=== PATIENT | female | born 1965 | race Caucasian/White ===

== ENCOUNTER 2016-12-09 13:38 | Emergency (ER) | payer BC ==
[2016-12-09 16:11] VITALS: BP 142/77
[2016-12-09] MEDS ORDERED: Albuterol/Ipratropium NEB.SOL* Albuterol 2.5 MG/Ipratropium 0.5 MG 3 ML INH ONE (16:22)
--- NOTE | 2016-12-09 16:22 | UC ---
Respiratory Complaint HPI - HPI Summary HPI Summary: pt here today with cough and fever for 2 days - History of Current Complaint Chief Complaint: UCRespiratory Stated Complaint: COUGH Time Seen by Provider: 12/09/16 16:13 Hx Obtained From: Patient Hx Last Menstrual Period: 12/01/16 ?: No Onset/Duration: Sudden Onset, Lasting Days - 2, Still Present Timing: Constant Severity Initially: Moderate Severity Currently: Moderate Pain Intensity: 4 Pain Scale Used: 0-10 Numeric Character: Cough: Productive Aggravating Factors: Nothing Alleviating Factors: Nothing Associated Signs And Symptoms: Positive: Fever, Chills, Pleuritic Chest Pain, URI, Nasal Congestion, Sinus Discomfort - Allergies/Home Medications Allergies/Adverse Reactions: Allergies Allergy/AdvReac Type Severity Reaction Status Date / Time Penicillins Allergy Unknown Unknown Verified 12/09/16 16:12 Reaction Details Sulfa Drugs Allergy Unknown Unknown Verified 12/09/16 16:12 Reaction Details Home Medications: Home Medications Dextromethorphan-Phenylephrine [Vicks Dayquil Cold & Flu 10-5-325 mg] 1 cap PO ONCE PRN 12/09/16 [History Confirmed 12/09/16] Ibuprofen TAB* [Motrin TAB* 800 MG] 800 mg PO Q6H 12/09/16 [History Confirmed ] Humdginiagjcp-Rujwggzvrb-Wltng [Nyquil Severe Cold/Flu 5-6.25-10-325 mg/15Ml] 1 liq PO QPM PRN 12/09/16 [History Confirmed 12/09/16] PMH/Surg Hx/FS Hx/Imm Hx Previously Healthy: No Endocrine History Of: Denies: Diabetes, Thyroid Disease Cardiovascular History Of: Reports: Cardiac Disorders - SVT Denies: Hypertension, Pacemaker/ICD Respiratory History Of: Reports: Asthma, Bronchitis Denies: COPD GI/ History Of: Denies: Ulcer - Surgical History Surgical History: Yes Surgery Procedure, Year, and Place: C-Sections, 1982 1994, [facility]; Right Carpal Tunnel, 2002, [facility]; Tubal Ligation, 2004, [place]; Uterine Ablation, 2006 , [place]; - Family History Known Family History: Positive: None Family History: denies cardiovascular issues in family lineage - Social History Occupation: Employed Full-time - social work program coordinator Lives: With Family Alcohol Use: Occasionally Substance Use Type: None Smoking Status (MU): Heavy Every Day Tobacco Smoker Type: Cigarettes Amount Used/How Often: 1 PPD Length of Time of Smoking/Using Tobacco: 31 Years Have You Smoked in the Last Year: Yes Household Exposure Type: Cigarettes Cessation Counseling: Counseled 3+Min - 10 Min - Immunization History Most Recent Influenza Vaccination: [id number] Review of Systems Constitutional: Fever, Chills, Fatigue Skin: Negative Eyes: Negative ENT: Nasal Discharge Respiratory: Cough Cardiovascular: Negative Gastrointestinal: Negative Genitourinary: Negative Motor: Negative Neurovascular: Negative Musculoskeletal: Negative Neurological: Negative Psychological: Negative All Other Systems Reviewed And Are Negative: Yes Physical Exam Triage Information Reviewed: Yes Appearance: Well-Nourished, Ill-Appearing, Pain Distress Vital Signs: Initial Vital Signs Temp 101.4 F 12/09/16 16:03 Pulse 97 12/09/16 16:03 Resp 20 12/09/16 16:03 BP 142/77 12/09/16 16:03 Pulse Ox 98 12/09/16 16:03 Vital Signs Reviewed: Yes Eye Exam: Normal Eyes: Positive: Conjunctiva Clear ENT Exam: Normal ENT: Positive: Normal ENT inspection, Hearing grossly normal, Pharynx normal, TMs normal. Negative: Nasal congestion, Nasal drainage, Tonsillar swelling, Tonsillar exudate, Trismus, Muffled/hoarse voice Neck exam: Normal Neck: Positive: Supple, Nontender, No Lymphadenopathy Respiratory Exam: Normal Respiratory: Positive: Chest non-tender, Lungs clear, Normal breath sounds, No respiratory distress, No accessory muscle use, Respiratory distress Cardiovascular Exam: Normal Cardiovascular: Positive: RRR, No Murmur, Pulses Normal, Brisk Capillary Refill Musculoskeletal Exam: Normal Musculoskeletal: Positive: Strength Intact, ROM Intact, No Edema Neurological Exam: Normal Neurological: Positive: Alert, Muscle Tone Normal Psychological Exam: Normal Psychological: Positive: Normal Response To Family Skin Exam: Normal UC Diagnostic Evaluation - Laboratory O2 Sat by Pulse Oximetry: 98 Respiratory Course/Dx - Course Course Of Treatment: Biaxin, prednisone, albuterol robitussin and codiene, smoking cesation information, increase fluids, follow with PCP re-check Prn - Differential Dx/Diagnosis Differential Diagnosis/HQI/PQRI: Bronchitis, Influenza, Laryngitis, Lower Resp Infection, Sinusitis Provider Diagnoses: Bronchitis with bronchospasm Discharge - Discharge Plan Condition: Stable Disposition: HOME Prescriptions: Albuterol HFA INHALER* [Ventolin HFA Inhaler*] 2 puff INH Q4H PRN #1 mdi PRN Reason: cough/chest tightness Clarithromycin TAB* [Biaxin TAB*] 500 mg PO BID #20 tab Spacer/Aerosol-Holding Chamber [Aerochamber Plus] 1 mis .SEE ORDER SEE INSTRUCTIONS #1 mis guaiFENesin/CODIEN 100MG-10MG* [Robitussin AC 100Mg-10Mg*] 10 ml PO Q6H PRN # 120 udc MDD 40ml PRN Reason: cough predniSONE TAB* [Deltasone TAB*] 10 mg PO DAILY #20 tab Patient Education Materials: How to Stop Smoking (ED), Cigarette Smoking and Your Health (GEN), How to Use a Metered-Dose Inhaler (ED), Acute Bronchitis (ED) , Bronchospasm (ED) Referrals: Bri Baca MD [Primary Care Provider] - If Needed
[2016-12-09] MEDS ORDERED: Acetaminophen TAB* 325 MG PO ONE (16:24)
== END 2016-12-09 17:25 | disposition home or self-care (01) ==
LOC: UCCORT 13:38
DX: J20.9 Acute bronchitis, unspecified (principal); Z88.2 Allergy status to sulfonamides; Z88.0 Allergy status to penicillin; F17.210 Nicotine dependence, cigarettes, uncomplicated; Z71.6 Tobacco abuse counseling
CPT/HCPCS: 87502; 99212; A9270-GY; G0463

== ENCOUNTER 2017-09-04 10:33 | Emergency (ER) | payer BC ==
[2017-09-04 12:04] VITALS: BP 148/66
[2017-09-04] MEDS ORDERED: Acetaminophen TAB* 325 MG PO ONE (12:05)
--- NOTE | 2017-09-04 12:51 | UC ---
FLU HPI - HPI Summary HPI Summary: Pt c/o gradual onset fever, malaise, sore throat, cough ,and bilateral ear pain. - History of Current Complaint Chief Complaint: UCRespiratory Stated Complaint: FEVER,SORE THROAT,EAR PAIN Time Seen by Provider: 09/04/17 12:05 Hx Obtained From: Patient Hx Last Menstrual Period: 08/28/17 ?: No Onset/Duration: Gradual Onset, Lasting Days, Worse Since - onset Severity Currently: Moderate Severity Initially: Mild Associated Signs & Symptoms: Positive: Fever, Myalgia, Cough, Sore Throat - Risk Factors Influenza Risk Factors: Negative - Allergy/Home Medications Allergies/Adverse Reactions: Allergies Allergy/AdvReac Type Severity Reaction Status Date / Time Penicillins Allergy Unknown Unknown Verified 12/09/16 16:12 Reaction Details Sulfa Drugs Allergy Unknown Unknown Verified 12/09/16 16:12 Reaction Details Home Medications: Home Medications Bupropion XL* [Wellbutrin XL *] 300 mg PO DAILY 09/04/17 [History Confirmed ] Varenicline 0.5 mg Tab(Nf) [Chantix 0.5 MG TAB(NF)] 0.5 mg PO DAILY 09/04/17 [ History Confirmed 09/04/17] PMH/Surg Hx/FS Hx/Imm Hx Previously Healthy: Yes - Surgical History Surgical History: Yes Surgery Procedure, Year, and Place: C-Sections, 1982 1994, [facility]; Right Carpal Tunnel, 2002, [facility]; Tubal Ligation, 2004, [place]; Uterine Ablation, 2006 , [place]; - Family History Known Family History: Positive: None Family History: denies cardiovascular issues in family lineage - Social History Occupation: Employed Full-time Lives: With Family Alcohol Use: Occasionally Substance Use Type: None Smoking Status (MU): Former Smoker Type: Cigarettes Amount Used/How Often: 1 PPD Length of Time of Smoking/Using Tobacco: 35 Years Have You Smoked in the Last Year: Yes When Did the Patient Quit Smoking/Using Tobacco: 07/15/17 Household Exposure Type: Cigarettes - Immunization History Most Recent Influenza Vaccination: 08/26/17 Review of Systems Constitutional: Fever, Chills, Fatigue Skin: Negative Eyes: Negative ENT: Sore Throat, Ear Ache Respiratory: Shortness Of Breath, Cough Cardiovascular: Negative Gastrointestinal: Negative Genitourinary: Negative Motor: Negative Neurovascular: Negative Musculoskeletal: Myalgia Neurological: Negative Psychological: Negative Is Patient Immunocompromised?: No All Other Systems Reviewed And Are Negative: Yes Physical Exam Triage Information Reviewed: Yes Appearance: Ill-Appearing Vital Signs: Initial Vital Signs Temp 101.2 F 09/04/17 11:58 Pulse 96 09/04/17 11:58 Resp 18 09/04/17 11:58 BP 148/66 09/04/17 11:58 Pulse Ox 99 09/04/17 11:58 Vital Signs Reviewed: Yes Eye Exam: Normal ENT Exam: Normal Neck exam: Normal Respiratory Exam: Other Respiratory: Positive: Crackles Cardiovascular Exam: Normal Musculoskeletal Exam: Normal Neurological Exam: Normal Psychological Exam: Normal Skin Exam: Normal Flu Course/Dx - Differential Dx/Diagnosis Differential Diagnosis/HQI/PQRI: Bronchitis, Pneumonia, Upper Respiratory Infection, Other Provider Diagnoses: Bronchitis Discharge - Discharge Plan Condition: Stable Disposition: HOME Prescriptions: Azithromycin TAB* [Zithromax TAB (Z-VICTOR MANUEL) 250 mg #6 tabs] 2 tab PO .TODAY, THEN 1 DAILY #1 victor manuel Benzonatate CAP* [Tessalon 100 MG CAP*] 100 mg PO Q8H PRN #21 cap PRN Reason: Cough predniSONE TAB* [Deltasone TAB*] 20 mg PO DAILY #4 tab Patient Education Materials: Acute Bronchitis (ED) Forms: *Work Release Referrals: Bri Baca MD [Primary Care Provider] -
== END 2017-09-04 13:00 | disposition home or self-care (01) ==
LOC: UCCORT 10:33
DX: J40 Bronchitis, not specified as acute or chronic (principal); Z88.0 Allergy status to penicillin; Z88.2 Allergy status to sulfonamides; Z87.891 Personal history of nicotine dependence
CPT/HCPCS: 87502; 87651; 99212; A9270-GY; G0463

== ENCOUNTER 2017-11-07 12:16 | Emergency (ER) | payer BC ==
--- NOTE | 2017-11-07 13:38 | UC ---
Upper Extremity HPI - HPI Summary HPI Summary: 52 year old female presents with complains of right shoulder pain with no trauma. - History of Current Complaint Stated Complaint: RIGHT SHOULDER PAIN Time Seen by Provider: 11/07/17 13:38 Hx Obtained From: Patient Hx Last Menstrual Period: 08/28/17 Onset/Duration: Sudden Onset Severity Initially: Moderate Severity Currently: Moderate Pain Scale Used: 0-10 Numeric - 5 Character: Sharp Aggravating Factor(s): Movement Alleviating Factor(s): Nothing Associated Signs And Symptoms: Positive: Negative - Allergies/Home Medications Allergies/Adverse Reactions: Allergies Allergy/AdvReac Type Severity Reaction Status Date / Time Penicillins Allergy Unknown Unknown Verified 11/07/17 14:00 Reaction Details Sulfa Drugs Allergy Unknown Unknown Verified 11/07/17 14:00 Reaction Details PMH/Surg Hx/FS Hx/Imm Hx Previously Healthy: Yes - Surgical History Surgical History: Yes Surgery Procedure, Year, and Place: C-Sections, 1982 1994, [facility]; Right Carpal Tunnel, 2002, [facility]; Tubal Ligation, 2004, [place]; Uterine Ablation, 2006 , [place]; - Family History Known Family History: Positive: None Family History: denies cardiovascular issues in family lineage - Social History Alcohol Use: Occasionally Substance Use Type: None Smoking Status (MU): Former Smoker Type: Cigarettes Amount Used/How Often: 1 PPD Length of Time of Smoking/Using Tobacco: 35 Years Have You Smoked in the Last Year: Yes When Did the Patient Quit Smoking/Using Tobacco: 07/15/17 Household Exposure Type: Cigarettes - Immunization History Most Recent Influenza Vaccination: 08/26/17 Review of Systems Constitutional: Negative Skin: Negative Eyes: Negative ENT: Negative Respiratory: Negative Cardiovascular: Negative Gastrointestinal: Negative Genitourinary: Negative Motor: Negative Neurovascular: Negative Musculoskeletal: Other: Neurological: Negative Psychological: Negative All Other Systems Reviewed And Are Negative: Yes Physical Exam Triage Information Reviewed: Yes Vital Signs Reviewed: Yes Eye Exam: Normal ENT Exam: Normal Dental Exam: Normal Neck exam: Normal Neck: Positive: 1 Respiratory Exam: Normal Cardiovascular Exam: Normal Abdominal Exam: Normal Musculoskeletal: Positive: Other: - right shoulder/neck pain Neurological Exam: Normal Psychological Exam: Normal Skin Exam: Normal Upper Extremity Course/Dx - Differential Dx/Diagnosis Provider Diagnoses: right neck/shoulder spasm/pain Discharge - Discharge Plan Condition: Stable Disposition: HOME Prescriptions: Meloxicam [Mobic] 7.5 mg PO BID #30 tab Methocarbamol TAB* [Robaxin 500 MG TAB*] 500 mg PO TID PRN #30 tab PRN Reason: Spasms - Back Patient Education Materials: Shoulder Sprain (ED) Referrals: Bri Baca MD [Primary Care Provider] - Eric Reese [Physical Therapist] -
[2017-11-07 14:05] VITALS: BP 129/57
== END 2017-11-07 14:16 | disposition home or self-care (01) ==
LOC: UCCORT 12:16
DX: M62.838 Other muscle spasm (principal); M54.2 Cervicalgia; M25.511 Pain in right shoulder; Z88.0 Allergy status to penicillin; Z88.2 Allergy status to sulfonamides; Z87.891 Personal history of nicotine dependence
CPT/HCPCS: 99212; G0463

== ENCOUNTER 2018-09-01 08:40 | Emergency (ER) | payer BC ==
--- OUTSIDE RECORDS SUMMARY | 2018-09-01 08:49 | XMS REPORT ---
:1965 External Reference #:[id number] Author Organization [facility] Address [address] [address] Phone [phone] Care Team Providers Name Role Phone Bri Baca MD Care Team Information Leasing Agent Unavailable Payers Type Date Identification Numbers Payment Provider Subscriber Commercial Effective: Policy Number: BCBS Aure Walker 2016 [id number] Group Number: CLAUDE RAJAN [address] [address] Group Name: KASSIE Mcneil [id number] PayID: [id number] Workers Compensation Onset: 2012 Policy Number: Noreen Walker [id number] [address] [place] [address] Problems Date Description Provider Status Onset: 04/18/2007 Elevated blood-pressure reading without Bri Baca MD Active diagnosis of hypertension Onset: 06/27/2006 Mixed hyperlipidemia Bri Baca MD Active Onset: 01/27/2006 Generalized anxiety disorder Bri Baca MD Active Onset: 07/22/2016 Tobacco user Bri Baca MD Active Onset: 04/27/2018 Chronic kidney disease stage 3 Bri Baca MD Active Onset: 12/15/2009 Benign essential hypertension Bri Baca MD Resolved Resolved: 02/07/2015 Family History Date Family Member(s) Problem(s) Comments General Hypertension Father Hypertension : (age 80 Years) Father due to CHF Also, had leukemia Father CAD Father Diabetes, Adult Diabetes Mellitus,II Mother Asthma Social History Type Date Description Comments Education Higest level completed, in human services and is Bachelor's Degree now in a part-time grad school for social work this fall. Marital Status Lives With Son Occupation Medicaid visitor services assistant for [employer] Cigarette Use Former Cigarette Smoker ETOH Use Rarely consumes alcohol Smoking 07/31/2018 Patient is a current smoker, 1 every 2-3 days smokes some days General Hx Text Allergies, Adverse Reactions, Alerts Date Description Reaction Status Severity Comments 11/14/2014 Penicillin active 11/14/2014 Sulfa Drugs active 12/13/2016 Clarithromycin active vomitng Medications Medication Date Status Form Strength Qnty SIG Indications Ordering Provider Gabapentin 08/10/ Active Capsules 300mg 30caps take 1 M54.9 Butt, 2018 capsule at Rene, bedtime DO Chantix 04/27/ Active Tablets 1mg 60tabs 1 by mouth F17.211 Keven Continuing 2017 twice a MD Bri Bupropion HCL 06/16/ Active Tablets ER 300mg 90tabs 1 by mouth F41.1 Keven ER (XL) 2016 24HR every day MD Bri Valacyclovir 05/02/ Active Tablets 1gm 90tabs 2 tabs by ROWDY Baca 2013 mouth MD Bri every 12 x 2 doses as needed cold sores Multi Vitamin / Active Tablets 1 by mouth Unknown 0000 every day Azithromycin 10/27/ Hx Tablets 250mg 6tabs 2 by mouth Keven 2016 - today, MD Bri 1 by 2018 mouth daily x 4 more days Bupropion HCL 05/25/ Hx Tablets ER 150mg 90tabs 1 by mouth F41.1 Keven ER (XL) 2016 - 24HR every day MD Bri 2016 Chantix 05/16/ Hx Tablets 1mg 30tabs 1 by mouth F17.211 Naman Baca 2016 - qd MD Bri 2017 Chantix 04/25/ Hx Tablets 0.5mg X 11 1tabs use as F17.210 Keven Starting Month 2016 - & 1 mg X directed MD Kirill Gregory on the 2016 package Bupropion HCL 01/20/ Hx Tablets ER 150mg 90tabs 1 by mouth F41.1 Keven ER (XL) 2016 - 24HR every MD Bri 05/25/ . 2016 Proventil HFA 12/13/ Hx Aerosol 108(90Base 1units 2 puffs R05 Keven 2016 - ) mcg/Act every 4 MD Bri 12/13/ hours as 2017 needed for cough/whee zing Prednisone 12/13/ Hx Tablets 10mg 63tabs 6 by mouth R05 Keven 2016 - daily x 3 MD Bri 01/20/ days, then 2016 decrease dose by 1 pill daily every 3 days until gone. Ventolin HFA 12/13/ Hx Aerosol 108(90Base 8gm 2 puffs R05 Keven 2016 - ) mcg/Act every 4 MD Bri 16/ hours as 2017 needed Meloxicam 05/01/ Hx Tablets 15mg 30tabs take 1 720.2 Keven 2014 - tablet MD Bri 07/25/ daily for 2014 pain for 1-2 weeks then daily if needed for pain Prednisone 05/01/ Hx Tablets 10mg 14tabs 1 by mouth 691.8 Keven 2014 - daily x 14 MD Bri 07/25/ 2014 Paroxetine HCL 11/14/ Hx Tablets 20mg 90tabs 1 by mouth F41.1 Keven 2014 - daily MD Bri 2016 Azithromycin 09/02/ Hx Tablets 250mg 6tabs 2 tabs by Keven 2013 - mouth x 1 MD Bri 11/14/ dose on 2014 the first day of treatment, then 1 tab by mouth daily x 4 days. Paroxetine HCL 02/01/ Hx Tablets 30mg 30tabs 1 by mouth 300.02 Keven 2013 - every day MD Bri 2014 Immunizations CPT Code Status Date Vaccine Reaction Lot # [id number] Given 07/31/2018 Prevnar 13 Pneumococal [id number] Conjugate Vaccine [id number] Given 08/26/2017 Afluria Imunization 06762 Given 07/27/2013 Afluria Or Fluvirin Flu Vac Intramuscular 38857 Given 07/23/2013 Hepatitis B Vac Adolescent 2 Dose Schedule 04042 Given 09/18/2011 Tdap (Adacel) Ages 7 And Above Only 94844 Given 09/07/2011 Afluria Or Fluvirin Flu Vac VIS DATE 06/01/11 Intramuscular 01188 Given 09/24/2010 Afluria Or Fluvirin Flu Vac Intramuscular 20183 Given 10/23/2009 Administration Swine Flu Vaccine [id number] 34665 Given 10/13/2009 Afluria Or Fluvirin Flu Vac Intramuscular 86980 Given 09/26/2008 Afluria Or Fluvirin Flu Vac Intramuscular 44568 Given 10/13/1995 Varicella (Chicken Pox) PER PAPER CHART Immunization 05574 Given 09/15/1995 Varicella (Chicken Pox) PER PAPER CHART. Immunization 71032 Given 01/17/1992 Mumps Immunization PER PAPER CHART. 41265 Given 01/17/1992 Measles Immunization PER PAPER CHART. (TITERS) 38608 Given 06/15/1977 Measles Immunization 04230 Given 07/21/1972 DTP Immunization PER PAPER CHART. 65585 Given 12/08/1969 Rubella Immunization PER PAPER CHART 83157 Given 12/18/1968 Mumps Immunization PER PAPER CHART 43545 Given 07/02/1968 IPV / Poliomyelitis PER PAPER CHART Immunization 98191 Given 12/31/1967 DTP Immunization PER PAPER CHART 48770 Given 07/04/1967 Measles Immunization PER PAPER CHART. 75609 Given 05/23/1967 IPV / Poliomyelitis PER PAPER CHART Immunization 14872 Given 01/13/1967 DTP Immunization PER PAPER CHART. 20891 Given 1966 DTP Immunization PER PAPER CHART. 83292 Given 1966 DTP Immunization PER PAPER CHART. 09891 Given 1966 IPV / Poliomyelitis PER PAPER CHART Immunization 24007 Given 1966 IPV / Poliomyelitis PER PAPER CHART Immunization 30346 Given 1966 IPV / Poliomyelitis PER PAPER CHART Immunization 14735 Refused 07/31/2018 Shingrix (Shingles) Zoster Vaccine HZV, Recombinant , Subunit, Adj [id number] Refused 07/31/2018 Flu Vaccine NOS Vital Signs Date Vital Result Comment 08/10/2018 Body Temperature 97.8 F Weight 148.00 lb Heart Rate 80 /min BP Systolic 136 mmHg BP Diastolic 86 mmHg Respiratory Rate 18 /min Height 65.50 inches 5'5.50" BMI (Body Mass Index) 24.3 kg/m2 07/31/2018 Weight 146.00 lb Heart Rate 76 /min BP Systolic 116 mmHg BP Diastolic 72 mmHg Respiratory Rate 16 /min Height 65.50 inches 5'5.50" BMI (Body Mass Index) 23.9 kg/m2 04/27/2018 Weight 144.00 lb Heart Rate 76 /min BP Systolic 112 mmHg BP Diastolic 70 mmHg Respiratory Rate 18 /min Height 65.50 inches 5'5.50" On 04/27/18 BMI (Body Mass Index) 23.6 kg/m2 10/27/2017 Body Temperature 97.3 F Weight 141.00 lb Heart Rate 76 /min BP Systolic 138 mmHg BP Diastolic 70 mmHg Respiratory Rate 18 /min Height 65.50 inches 5'5.50" On 12/13/16 O2 % BldC Oximetry 96 % BMI (Body Mass Index) 23.1 kg/m2 07/14/2017 Weight 142.00 lb Heart Rate 88 /min BP Systolic 130 mmHg BP Diastolic 86 mmHg Respiratory Rate 14 /min Height 65.50 inches 5'5.50" On 12/13/16 BMI (Body Mass Index) 23.3 kg/m2 06/16/2017 Weight 142.00 lb Heart Rate 76 /min BP Systolic 130 mmHg BP Diastolic 88 mmHg Respiratory Rate 18 /min Height 65.50 inches 5'5.50" On 12/13/16 BMI (Body Mass Index) 23.3 kg/m2 05/16/2017 Weight 143.00 lb Heart Rate 68 /min BP Systolic 142 mmHg BP Diastolic 80 mmHg Respiratory Rate 18 /min Height 65.50 inches 5'5.50" On 12/13/16 BMI (Body Mass Index) 23.4 kg/m2 04/25/2017 Weight 144.00 lb Heart Rate 76 /min BP Systolic 130 mmHg BP Diastolic 70 mmHg Respiratory Rate 18 /min Height 65.50 inches 5'5.50" On 12/13/16 BMI (Body Mass Index) 23.6 kg/m2 02/08/2017 Weight 150.00 lb Heart Rate 76 /min BP Systolic 140 mmHg BP Diastolic 70 mmHg Respiratory Rate 18 /min Height 65.50 inches 5'5.50" On 12/13/16 BMI (Body Mass Index) 24.6 kg/m2 01/20/2017 Weight 151.00 lb Heart Rate 765 /min BP Systolic 114 mmHg BP Diastolic 80 mmHg Respiratory Rate 18 /min Height 65.50 inches 5'5.50" On 12/13/16 BMI (Body Mass Index) 24.7 kg/m2 12/13/2016 Body Temperature 98.2 F Weight 150.00 lb Heart Rate 76 /min BP Systolic 140 mmHg BP Diastolic 80 mmHg Respiratory Rate 18 /min Height 65.50 inches 5'5.50" On 12/13/16 O2 % BldC Oximetry 98 % BMI (Body Mass Index) 24.6 kg/m2 07/22/2016 Weight 150.00 lb Heart Rate 68 /min BP Systolic 122 mmHg BP Diastolic 88 mmHg Respiratory Rate 18 /min Height 65.50 inches 5'5.50" On 11/14/14 Done BMI (Body Mass Index) 24.6 kg/m2 01/09/2016 Weight 150.00 lb Heart Rate 76 /min BP Systolic 140 mmHg BP Diastolic 70 mmHg Respiratory Rate 18 /min Height 65.50 inches 5'5.50" On 11/14/14 Done BMI (Body Mass Index) 24.6 kg/m2 07/25/2015 Weight 150.00 lb Heart Rate 76 /min BP Systolic 122 mmHg BP Diastolic 78 mmHg Respiratory Rate 18 /min Height 65.50 inches 5'5.50" On 11/14/14 Done BMI (Body Mass Index) 24.6 kg/m2 05/01/2015 Weight 147.00 lb Heart Rate 76 /min BP Systolic 112 mmHg BP Diastolic 70 mmHg Respiratory Rate 18 /min Height 65.50 inches 5'5.50" On 11/14/14 Done BMI (Body Mass Index) 24.1 kg/m2 02/07/2015 Weight 146.00 lb Heart Rate 76 /min BP Systolic 122 mmHg BP Diastolic 80 mmHg Respiratory Rate 18 /min Height 65.50 inches 5'5.50" On 11/14/14 Done BMI (Body Mass Index) 23.9 kg/m2 11/14/2014 Weight 146.00 lb Heart Rate 76 /min BP Systolic 130 mmHg BP Diastolic 88 mmHg Respiratory Rate 18 /min Height 65.50 inches 5'5.50" On 11/14/14 Done BMI (Body Mass Index) 23.9 kg/m2 09/02/2014 Body Temperature 99.2 F Weight 146.00 lb Heart Rate 78 /min BP Systolic 142 mmHg BP Diastolic 58 mmHg Respiratory Rate 18 /min Height 65 inches 5'5" O2 % BldC Oximetry 97 % Ra 05/14/2014 Weight 144.00 lb Heart Rate 80 /min BP Systolic 110 mmHg BP Diastolic 80 mmHg Respiratory Rate 18 /min Height 65 inches 5'5" 02/01/2014 Weight 143.00 lb Heart Rate 68 /min BP Systolic 110 mmHg BP Diastolic 72 mmHg Respiratory Rate 16 /min Height 65 inches 5'5" 10/08/2013 Weight 151.00 lb Heart Rate 80 /min BP Systolic 130 mmHg BP Diastolic 80 mmHg Respiratory Rate 16 /min Height 65 inches 5'5" (Done On 11/15/12) 09/04/2013 Weight 150.00 lb Heart Rate 72 /min BP Systolic 120 mmHg BP Diastolic 80 mmHg Respiratory Rate 16 /min Height 65 inches 5'5" (Done On 11/15/12) 08/16/2013 Weight 148.00 lb Heart Rate 88 /min BP Systolic 128 mmHg BP Diastolic 80 mmHg Respiratory Rate 16 /min Height 65 inches 5'5" (Done On 11/15/12) 07/27/2013 Weight 146.00 lb Heart Rate 68 /min BP Systolic 112 mmHg BP Diastolic 72 mmHg Respiratory Rate 16 /min Height 65 inches 5'5" (Done On 11/15/12) 07/03/2013 Weight 145.00 lb Heart Rate 88 /min BP Systolic 120 mmHg BP Diastolic 88 mmHg Respiratory Rate 16 /min Height 65 inches 5'5" (Done On 11/15/12) 06/12/2013 Weight 151.00 lb Heart Rate 76 /min BP Systolic 110 mmHg BP Diastolic 80 mmHg Respiratory Rate 16 /min Height 65 inches 5'5" (Done On 11/15/12) 05/15/2013 Body Temperature 98.9 F Weight 156.00 lb Heart Rate 84 /min BP Systolic 110 mmHg BP Diastolic 80 mmHg Respiratory Rate 16 /min Height 65 inches 5'5" (Done On 11/15/12) 05/02/2013 Weight 158.00 lb Heart Rate 72 /min BP Systolic 130 mmHg BP Diastolic 90 mmHg Respiratory Rate 16 /min Height 65 inches 5'5" (Done On 11/15/12) 12/18/2012 Weight 177.00 lb Heart Rate 84 /min BP Systolic 126 mmHg BP Diastolic 88 mmHg Respiratory Rate 18 /min Height 65 inches 5'5" (Done On 11/15/12) 11/15/2012 Weight 177.00 lb Heart Rate 80 /min BP Systolic 116 mmHg BP Diastolic 72 mmHg Respiratory Rate 18 /min Height 65 inches 5'5" 05/01/2012 Weight 168.00 lb Heart Rate 84 /min BP Systolic 124 mmHg BP Diastolic 80 mmHg Respiratory Rate 16 /min Height 65 inches 5'5" (Done On 11/11/11) 03/13/2012 Weight 168.00 lb Heart Rate 76 /min BP Systolic 110 mmHg BP Diastolic 70 mmHg Respiratory Rate 16 /min Height 65 inches 5'5" (Done On 11/11/11) 12/14/2011 Weight 171.00 lb Heart Rate 70 /min BP Systolic 128 mmHg BP Diastolic 72 mmHg Respiratory Rate 17 /min Height 65 inches 5'5" 11/11/2011 Weight 173.00 lb Heart Rate 72 /min BP Systolic 150 mmHg BP Diastolic 52 mmHg Respiratory Rate 16 /min Height 65 inches 5'5" 07/01/2011 Weight 163.00 lb Heart Rate 72 /min BP Systolic 110 mmHg BP Diastolic 74 mmHg Respiratory Rate 18 /min Height 64.75 inches 5'4.75" 03/01/2011 Body Temperature 97.3 F Weight 164.00 lb Heart Rate 80 /min BP Systolic 124 mmHg BP Diastolic 80 mmHg 01/01/2011 Body Temperature 97.5 F Weight 165.00 lb Heart Rate 64 /min BP Systolic 124 mmHg l arm BP Diastolic 72 mmHg l arm Respiratory Rate 18 /min 01/01/2011 Weight 165.00 lb Heart Rate 70 /min BP Systolic 130 mmHg BP Diastolic 68 mmHg Respiratory Rate 14 /min 2010 Weight 163.00 lb Heart Rate 76 /min BP Systolic 114 mmHg BP Diastolic 72 mmHg Respiratory Rate 16 /min Height 65 inches 5'5" 04/30/2010 Body Temperature 98.9 F Weight 162.00 lb Heart Rate 70 /min BP Systolic 118 mmHg BP Diastolic 70 mmHg Respiratory Rate 15 /min 04/21/2010 Weight 166.00 lb Heart Rate 72 /min BP Systolic 110 mmHg BP Diastolic 70 mmHg Respiratory Rate 16 /min 03/20/2010 BP Systolic 90 mmHg BP Diastolic 70 mmHg 03/20/2010 Weight 166.00 lb Heart Rate 64 /min BP Systolic 110 mmHg BP Diastolic 80 mmHg Respiratory Rate 16 /min 12/15/2009 Weight 166.00 lb Heart Rate 72 /min BP Systolic 110 mmHg BP Diastolic 70 mmHg Respiratory Rate 16 /min 11/20/2009 Weight 168.00 lb Heart Rate 72 /min BP Systolic 112 mmHg BP Diastolic 64 mmHg Respiratory Rate 16 /min Height 65 inches 5'5" 10/21/2009 Weight 164.00 lb Heart Rate 72 /min BP Systolic 132 mmHg BP Diastolic 90 mmHg Respiratory Rate 16 /min 09/30/2009 Weight 159.00 lb Heart Rate 88 /min BP Systolic 132 mmHg BP Diastolic 84 mmHg Respiratory Rate 16 /min 09/16/2009 BP Systolic 140 mmHg BP Diastolic 100 mmHg 09/16/2009 Weight 162.00 lb Heart Rate 81 /min BP Systolic 150 mmHg BP Diastolic 110 mmHg Respiratory Rate 15 /min 09/02/2009 BP Systolic 150 mmHg BP Diastolic 100 mmHg 09/02/2009 Weight 161.00 lb Heart Rate 76 /min BP Systolic 146 mmHg BP Diastolic 108 mmHg Respiratory Rate 16 /min 08/14/2009 BP Systolic 140 mmHg BP Diastolic 100 mmHg 08/14/2009 Weight 160.00 lb Heart Rate 88 /min BP Systolic 150 mmHg BP Diastolic 90 mmHg Respiratory Rate 16 /min 02/07/2009 Weight 160.00 lb Heart Rate 76 /min BP Systolic 120 mmHg BP Diastolic 80 mmHg Respiratory Rate 18 /min Height 65 inches 5'5" 08/08/2008 BP Systolic 120 mmHg BP Diastolic 80 mmHg 08/08/2008 Weight 156.00 lb Heart Rate 80 /min BP Systolic 136 mmHg BP Diastolic 102 mmHg Respiratory Rate 16 /min Height 65 inches 5'5" 02/19/2008 Weight 161.00 lb Heart Rate 72 /min BP Systolic 136 mmHg BP Diastolic 84 mmHg Respiratory Rate 18 /min Height 65 inches 5'5" 02/10/2008 Weight 159.00 lb Heart Rate 84 /min BP Systolic 120 mmHg BP Diastolic 82 mmHg Respiratory Rate 20 /min Height 65 inches 5'5" 08/17/2007 Weight 151.00 lb Heart Rate 76 /min BP Systolic 126 mmHg BP Diastolic 90 mmHg Respiratory Rate 16 /min Height 65 inches 5'5" 04/18/2007 BP Systolic 120 mmHg BP Diastolic 90 mmHg 04/18/2007 Weight 145.00 lb Heart Rate 88 /min BP Systolic 124 mmHg BP Diastolic 94 mmHg Respiratory Rate 16 /min Height 65 inches 5'5" 02/15/2007 Weight 148.31 lb Heart Rate 72 /min BP Systolic 134 mmHg BP Diastolic 88 mmHg Respiratory Rate 16 /min Height 65 inches 5'5" 01/10/2007 Weight 148.00 lb Heart Rate 84 /min BP Systolic 126 mmHg BP Diastolic 90 mmHg Respiratory Rate 20 /min Height 65 inches 5'5" 12/13/2006 Weight 145.00 lb Heart Rate 80 /min BP Systolic 130 mmHg BP Diastolic 80 mmHg Respiratory Rate 20 /min Height 65 inches 5'5" 11/22/2006 Body Temperature 98.8 F Weight 146.00 lb Heart Rate 80 /min BP Systolic 140 mmHg BP Diastolic 100 mmHg Respiratory Rate 20 /min Height 65 inches 5'5" 06/27/2006 Weight 141.38 lb Heart Rate 72 /min BP Systolic 120 mmHg BP Diastolic 82 mmHg Respiratory Rate 16 /min Height 65 inches 5'5" 03/10/2006 Weight 145.00 lb Heart Rate 72 /min BP Systolic 128 mmHg BP Diastolic 82 mmHg Respiratory Rate 18 /min Height 65 inches 5'5" 02/07/2006 Weight 145.00 lb Heart Rate 72 /min BP Systolic 140 mmHg BP Diastolic 90 mmHg Height 65 inches 5'5" 01/27/2006 Weight 142.00 lb Heart Rate 88 /min BP Systolic 124 mmHg BP Diastolic 86 mmHg Respiratory Rate 20 /min Height 65 inches 5'5" 09/15/2005 Weight 140.00 lb Heart Rate 80 /min BP Systolic 110 mmHg BP Diastolic 72 mmHg Respiratory Rate 20 /min 06/24/2005 Body Temperature 97.8 F Weight 140.00 lb Heart Rate 80 /min BP Systolic 124 mmHg BP Diastolic 88 mmHg Respiratory Rate 16 /min 03/12/2005 Body Temperature 96.8 F Weight 144.00 lb Heart Rate 80 /min BP Systolic 120 mmHg BP Diastolic 80 mmHg 01/28/2005 Weight 143.00 lb Heart Rate 70 /min BP Systolic 104 mmHg BP Diastolic 70 mmHg Respiratory Rate 18 /min Results Test Date Test Result H/L Range Note Basic (BMP) 07/24/2018 Sodium 139 mmol/L 135-146 1, 2 Potassium 4.2 mmol/L 3.5-5.2 1 Chloride# 102 mmol/L 97-110 1, 3 Carbon Dioxide 28 mmol/L 24-34 1 Glucose 75 mg/dL 70-105 1 BUN 15 mg/dL 6-26 1 Creatinine 0.8 mg/dL 0.5-1.4 1 Calcium 9.4 mg/dL 8.5-10.2 1 Non Ivory Egfr >60 >60 1, 4 Ivory Egfr >60 >60 1, 5 Anion Gap 9 mmol/L 5-15 1, 6 Microalb/Creat Panel 04/27/2018 Creatinine, Urine 149.5 mg/dL 7 Microalbumin < 7.0 ug/ml 5.0-20.0 Urinalysis with Reflex to Culture-RL 04/27/2018 Color YELLOW Appearance CLEAR Spec Grav Urine 1.023 (1.003-1.030) PH Urine 7.0 (5.0-7.5) Leuk Esterase NEGATIVE (Neg) Nitrite Urine NEGATIVE (Neg) Protein Urine NEGATIVE (Neg) Glucose Urine NEGATIVE (Neg) Ketone Urine NEGATIVE (Neg) Urobilinogen 0.2 mg/dL (0-1.0) Bilirubin Urine NEGATIVE (Neg) Blood/HGB Urine NEGATIVE (Neg) 8 Laboratory test finding 04/20/2018 TSH 2.59 uIU/mL 0.35-4.94 9 Comprehensive Metabolic (CMP) 04/20/2018 Sodium 138 mmol/L 135-146 9, 10 Potassium 4.2 mmol/L 3.5-5.2 9 Chloride# 102 mmol/L 97-110 9, 11 Carbon Dioxide 27 mmol/L 24-34 9 Glucose 85 mg/dL 70-105 9 BUN 18 mg/dL 6-26 9 Creatinine 1.0 mg/dL 0.5-1.4 9 Calcium 9.4 mg/dL 8.5-10.2 9 Total Protein 6.5 g/dL 6.0-8.0 9 Albumin 4.3 g/dL 3.6-4.9 9 Globulin 2.2 g/dL 2.0-3.5 9 A/G Ratio 2.0 Ratio 1.0-2.2 9 Total Bilirubin 0.6 mg/dL 0.1-1.3 9 Alkaline Phosphatase 57 U/L 24-140 9 Alt 10 U/L 3-42 9 Ast 11 U/L 8-42 9 Ivory Egfr >60 >60 9, 12 Non Ivory Egfr 56 Low >60 9, 13 Anion Gap 9 mmol/L 5-15 9, 14 Lipid 04/20/2018 Cholesterol 212 mg/dL High 50-199 9 Triglycerides 109 mg/dL 30-200 9 HDL 55 mg/dL 35-85 9, 15 Chol/ HDL Ratio 3.8 ratio 3.7-5.6 9 VLDL 22 mg/dL 2-29 9 LDL (Calc) 135 mg/dL High 20-99 9, 16 CBC With Auto Diff 04/20/2018 WBC 7.0 K/uL 4.1-11.0 9 RBC 4.51 M/uL 4.00-5.40 9 Hemoglobin 13.6 gm/dL 12.0-16.0 9 Hematocrit 39.8 % 36.0-47.0 9 MCV 88.3 fL 80.0-97.0 9 MCH 30.1 pg 27.0-32.0 9 MCHC 34.1 g/dL 32.0-36.0 9 RDW 13.5 % 11.5-14.5 9 PLT Count 272 K/ul 140-400 9 MPV 8.7 FL 7.1-10.7 9 Neutrophil 56.3 % 35.0-75.0 9 Lymphocyte 30.8 % 16.0-52.0 9 Monocyte 7.2 % 2.0-10.0 9 Eosinophil 5.0 % 0.0-5.0 9 Basophil 0.7 % 0.0-4.0 9 Abs Neutrophils 4.0 K/uL 2.1-8.0 9 Abs Lymphocytes 2.2 K/uL 0.8-5.5 9 Abs Monocytes 0.5 K/uL 0.1-1.0 9 Abs Eosinophils 0.4 K/uL 0.0-0.5 9 Abs Basophils 0.1 K/uL 0.0-0.3 9 Laboratory test finding 04/18/2017 TSH 1.88 uIU/mL 0.35-4.94 17 Comprehensive Metabolic (CMP) 04/18/2017 Sodium 142 mmol/L 135-146 17, 18 Potassium 4.0 mmol/L 3.5-5.2 17 Chloride# 109 mmol/L 97-110 17, 19 Carbon Dioxide 27 mmol/L 24-34 17 Glucose 96 mg/dL 70-105 17 BUN 23 mg/dL 6-26 17 Creatinine 1.0 mg/dL 0.5-1.4 17 Calcium 9.2 mg/dL 8.5-10.2 17 Total Protein 6.6 g/dL 6.0-8.0 17 Albumin 4.2 g/dL 3.6-4.9 17 Globulin 2.4 g/dL 2.0-3.5 17 A/G Ratio 1.8 Ratio 1.0-2.2 17 Total Bilirubin 0.3 mg/dL 0.1-1.3 17 Alkaline Phosphatase 49 U/L 24-140 17 Alt 7 U/L 3-42 17 Ast 8 U/L 8-42 17 Ivory Egfr >60 >60 17, 20 Non Ivory Egfr 56 Low >60 17, 21 Anion Gap 10 mmol/L 7-16 17, 22 Lipid 04/18/2017 Cholesterol 184 mg/dL 50-199 17 Triglycerides 80 mg/dL 30-200 17 HDL 40 mg/dL 35-85 17, 23 Chol/ HDL Ratio 4.6 ratio 3.7-5.6 17 VLDL 16 mg/dL 2-29 17 LDL (Calc) 128 mg/dL High 20-99 17, 24 CBC With Auto Diff 04/18/2017 WBC 6.2 K/uL 4.1-11.0 17 RBC 4.40 M/uL 4.00-5.40 17 Hemoglobin 13.6 gm/dL 12.0-16.0 17 Hematocrit 40.3 % 36.0-47.0 17 MCV 91.4 fL 80.0-97.0 17 MCH 30.8 pg 27.0-32.0 17 MCHC 33.7 g/dL 32.0-36.0 17 RDW 13.6 % 11.5-14.5 17 PLT Count 229 K/ul 140-400 17 Neutrophil 57.0 % 35.0-75.0 17 Lymphocyte 30.9 % 16.0-52.0 17 Monocyte 7.0 % 2.0-10.0 17 Eosinophil 4.2 % 0.0-5.0 17 Basophil 0.9 % 0.0-4.0 17 Abs Neutrophils 3.5 K/uL 2.1-8.0 17 Abs Lymphocytes 1.9 K/uL 0.8-5.5 17 Abs Monocytes 0.4 K/uL 0.1-1.0 17 Abs Eosinophils 0.3 K/uL 0.0-0.5 17 Abs Basophils 0.1 K/uL 0.0-0.3 17 Lipid Treatment 07/14/2016 Cholesterol 234 mg/dL High 50-199 25 Triglycerides 87 mg/dL 30-200 25 HDL 40 mg/dL 35-85 25, 26 Chol/ HDL Ratio 5.9 ratio High 3.7-5.6 25 VLDL 17 mg/dL 2-29 25 LDL (Calc) 177 mg/dL High 20-99 25, 27 Alt 6 U/L 3-42 25 Ast 9 U/L 8-42 25 CBC With Auto Diff 07/14/2016 WBC 7.5 K/uL 4.1-11.0 25 RBC 4.59 M/uL 4.00-5.40 25 Hemoglobin 13.9 gm/dL 12.0-16.0 25 Hematocrit 40.7 % 36.0-47.0 25 MCV 88.5 fL 80.0-97.0 25 MCH 30.2 pg 27.0-32.0 25 MCHC 34.2 g/dL 32.0-36.0 25 RDW 13.5 % 11.5-14.5 25 PLT Count 249 K/ul 140-400 25 Neutrophil 63.8 % 35.0-75.0 25 Lymphocyte 25.9 % 16.0-52.0 25 Monocyte 6.2 % 2.0-10.0 25 Eosinophil 3.4 % 0.0-5.0 25 Basophil 0.7 % 0.0-4.0 25 Abs Neutrophils 4.8 K/uL 2.1-8.0 25 Abs Lymphocytes 1.9 K/uL 0.8-5.5 25 Abs Monocytes 0.5 K/uL 0.1-1.0 25 Abs Eosinophils 0.3 K/uL 0.0-0.5 25 Abs Basophils 0.1 K/uL 0.0-0.3 25 Laboratory test finding 07/14/2016 TSH 1.44 uIU/mL 0.35-4.94 25 Basic (BMP) 07/14/2016 Sodium 135 mmol/L 134-142 25 Potassium 4.2 mmol/L 3.5-5.2 25 Chloride 107 mmol/L 97-109 25 Carbon Dioxide 27 mmol/L 24-34 25 Glucose 96 mg/dL 70-105 25 BUN 18 mg/dL 6-26 25 Creatinine 0.8 mg/dL 0.5-1.4 25 Calcium 9.0 mg/dL 8.5-10.2 25 Anion Gap 5 mmol/L Low 6-14 25 Non Ivory Egfr >60 >60 25, 28 Ivory Egfr >60 >60 25, 29 CBC W/Automated Diff 07/22/2015 White Blood Count 5.7 K/uL 3.1-10.7 Red Blood Count 4.41 M/uL 3.90-5.40 Hemoglobin 13.6 gm/dL 11.6-15.8 Hematocrit 40.6 % 36.0-46.1 Mean Cell Volume 92.1 fl 80.9-99.0 Mean Corpuscular HGB 30.8 pg 25.9-32.7 Mean Corpuscular HGB Conc 33.5 g/dL 30.8-34.3 Platelet Count 252 K/uL 155-360 Red Cell Distri Width SD 43.9 fl 3-47 Red Cell Distri Width %CV 13.2 % 11.7-14.4 Mean Platelet Volume 11.3 fL 8.9-12.4 Neut% 56.3 % 40.4-72.8 Lymph % 32.3 % 17.0-46.1 Saline % 5.8 % 4.3-13.2 Eo% 5.1 % 0.0-6.6 Bas% 0.5 % 0.0-1.1 Neut# 3.18 K/uL 1.0-7.0 Lymph # 1.83 K/uL 1.8-7.0 Saline # 0.33 K/uL 0.3-0.9 Eos # 0.29 K/uL 0.0-0.5 Baso # 0.03 K/uL 0.0-0.1 Laboratory test finding 07/22/2015 Thyroid Stim Hormone 1.77 uIU/mL 0.36- 3.74 Comprehensive Metabolic 07/22/2015 Glucose 97 mg/dL 74-106 Panel BUN 17 mg/dL 7-18 Creatinine 0.9 mg/dL 0.6-1.3 Glom Filtration Rate, Estimate >60 mL/min >60 If >60 mL/min >60 30 BUN/Creat 18.8 ratio Sodium 140 mmol/L 136-145 Potassium 3.9 mmol/L 3.5-5.1 Chloride 108 mmol/L High 98-107 Carbon Dioxide 25 mmol/L 21-32 Anion Gap 7 mEq/L Low 8-16 Calcium 8.4 mg/dL Low 8.5-10.1 Total Protein 7.2 g/dL 6.4-8.2 Albumin 3.9 g/dL 3.4-5.0 Globulin 3.3 g/dL 1.9-4.3 Alb/Glob 1.2 ratio Bilirubin,Total 0.4 mg/dL 0.2-1.0 Sgot/Ast 10 U/L Low 15-37 31 SGPT/Alt 16 U/L 12-78 Alkaline Phosphatase 59 U/L 45-117 Laboratory test finding 05/03/2014 % Baso. 1.5 % 0.0-2.0 % Eos. 5.5 % High 0.0-4.0 % Lymph 36 % 20-44 % Saline 6.2 % 2.0-10.0 % Delfino 51 % 50-70 A/G Ratio 1.7 ratio 1.6-2.2 Absolute Baso. 0.1 K/ul 0.0-0.3 Absolute Eos. 0.4 K/ul 0.0-0.5 Absolute Lymph. 2.7 K/ul 0.8-4.8 Absolute Saline. 0.5 K/ul 0.1-1.0 Absolute Delfino. 3.73 K/ul 2.05-7.63 Albumin 4.2 g/dL 3.5-5.0 Alk. Phos. 64.0 U/L 30.0-126.0 Alt 9.0 U/L 9.0-52.0 Anion Gap 10.0 mmol/L 10.0-20.0 Ast 11.0 U/L Low 14.0-36.0 BUN 15.0 mg/dL 7.0-18.0 BUN/Creat Ratio 16.7 ratio 12.0-20.0 Calcium 9.2 mg/dL 8.7-10.5 Chloride 106.0 mmol/L 98.0-107.0 Co2 24.0 mmol/L 22.0-30.0 Creatinine-Serum 0.9 mg/dL 0.7-1.2 Globulin 2.5 g/dL Low 2.7-4.3 Glucose 91.0 mg/dL 75.0-110.0 HCT 43.5 % 37.0-51.0 HGB 14.7 Gm/dl 12.0-16.0 MCH 30.6 pg 26.0-32.0 MCHC 33.9 g/dL 31.0-36.0 MCV 90.3 Fl 80.0-97.0 MPV 7.3 fL 6.0-10.0 PLT 277 K/ul 140-440 Potasium 4.3 mmol/L 3.6-5.0 RBC 4.8 M/ul 4.2-6.3 RDW 12.0 % 11.5-14.5 Sodium 140.0 mmil/L 137.0-145.0 TSH 1.24 uIU/ml 0.50-6.00 Total Bilirubin 0.7 mg/dL 0.2-1.3 Total Protein 6.7 g/dL 6.3-8.2 Vitamin D 32.2 ng/mL 30.0-100.0 WBC 7.4 K/ul 4.1-10.9 eGFR 72.8 mi/minper1.73 32 Lipid Panel 05/03/2014 Chol/HDL Ratio 4.3 ratio Cholesterol 208.0 mg/dL High 50.0-199.0 HDL 48.0 mg/dL 29.0-86.0 LDL, Calculated 144.4 mg/dL High 20.0-129.0 Triglycerides 78.0 mg/dL 30.0-249.0 vLDL 15.6 ng/dL Laboratory test finding 02/01/2014 Gastric Biopsy/Polyp See Note 33 Laboratory test finding 05/02/2013 % Baso. 1.4 % 0.0-2.0 % Eos. 1.9 % 0.0-4.0 % Lymph 28 % 20-44 % Saline 7.1 % 2.0-10.0 % Delfino 62 % 50-70 A/G Ratio 1.7 ratio 1.6-2.2 Absolute Baso. 0.1 K/ul 0.0-0.3 Absolute Eos. 0.1 K/ul 0.0-0.5 Absolute Lymph. 1.5 K/ul 0.8-4.8 Absolute Saline. 0.4 K/ul 0.1-1.0 Absolute Delfino. 3.45 K/ul 2.05-7.63 Albumin 4.3 g/dL 3.5-5.0 Alk. Phos. 66.0 U/L 30.0-126.0 Alt 6.0 U/L Low 9.0-52.0 Anion Gap 10.0 mmol/L 10.0-20.0 Ast 8.0 U/L Low 14.0-36.0 BUN 16.0 mg/dL 7.0-18.0 BUN/Creat Ratio 16.0 ratio 12.0-20.0 Calcium 9.6 mg/dL 8.7-10.5 Chloride 103.0 mmol/L 98.0-107.0 Co2 27.0 mmol/L 22.0-30.0 Creatinine-Serum 1.0 mg/dL 0.7-1.2 Globulin 2.6 g/dL Low 2.7-4.3 Glucose 96.0 mg/dL 75.0-110.0 HCT 42.0 % 37.0-51.0 HGB 14.4 Gm/dl 12.0-16.0 MCH 30.5 pg 26.0-32.0 MCHC 34.2 g/dL 31.0-36.0 MCV 89.2 Fl 80.0-97.0 MPV 8.5 fL 6.0-10.0 PLT 350 K/ul 140-440 Potasium 4.1 mmol/L 3.6-5.0 RBC 4.7 M/ul 4.2-6.3 RDW 11.6 % 11.5-14.5 Sodium 140.0 mmil/L 137.0-145.0 TSH 1.41 uIU/ml 0.50-6.00 Total Bilirubin 0.3 mg/dL 0.2-1.3 Total Protein 6.9 g/dL 6.3-8.2 Vitamin D 37.9 ng/mL 30.0-100.0 WBC 5.6 K/ul 4.1-10.9 eGFR 65.5 mi/minper1.73 34 Lipid Panel 05/02/2013 Chol/HDL Ratio 5.7 ratio Cholesterol 194.0 mg/dL 50.0-199.0 HDL 34.0 mg/dL 29.0-86.0 LDL, Calculated 142.4 mg/dL High 20.0-129.0 Triglycerides 88.0 mg/dL 30.0-249.0 vLDL 17.6 ng/dL Urine Microalbumin/Creat 05/02/2013 Microalb/Creat Ratio 3.5 ug/ngcrt 0.0 -30.0 Urine Creatinine 202.9 mg/dL Urine Microalbumin 7.1 mg/L <18.5 Valproic Acid,Free + 05/02/2013 Free Valproic None Detected ug/mL 4.0- 12.0 35 Total Valproic Acid (Depakote),S <4 ug/mL Low 50-100 36 1 3 mos 2 Updated reference range on new analyzer 3 Updated reference range on new analyzer 4 Concerning GFR Guidelines: Normal function or mild renal disease, if clinically at risk: >/=60 mL/min Moderately decreased: 30-59 Severely decreased: 15-29 Renal failure: <15 Glomerular Filtration Rate (GFR) is estimated based on the MDRD equation, which assumes a steady state for creatinine as recommended by the National Kidney Disease Education Program in conjunction with the National Institutes of Health and the National Kidney Foundation. Clinical conditions in which it may be necessary to measure GFR by using clearance methods include extremes of age and body size, severe malnutrition or obesity, diseases of skeletal muscle, paraplegia or quadriplegia, vegetarian diet, rapidly changing kidney function, and calculation of the dose of potentially toxic drugs that are excreted by the kidneys. 5 Concerning GFR Guidelines for Americans: Normal function or mild renal disease, if clinically at risk: >/=60 mL/min Moderately decreased: 30-59 Severely decreased: 15-29 Renal failure: <15 6 Updated Reference Range 7 Unable to calculate ratio. Microalbumin <7.0 8 Unless otherwise specified, testing performed by [facility] [address] [place] [id number] 6 mos 10 Updated reference range on new analyzer 11 Updated reference range on new analyzer 12 Concerning GFR Guidelines for Americans: Normal function or mild renal disease, if clinically at risk: >/=60 mL/min Moderately decreased: 30-59 Severely decreased: 15-29 Renal failure: <15 13 Concerning GFR Guidelines: Normal function or mild renal disease, if clinically at risk: >/=60 mL/min Moderately decreased: 30-59 Severely decreased: 15-29 Renal failure: <15 Glomerular Filtration Rate (GFR) is estimated based on the MDRD equation, which assumes a steady state for creatinine as recommended by the National Kidney Disease Education Program in conjunction with the National Institutes of Health and the National Kidney Foundation. Clinical conditions in which it may be necessary to measure GFR by using clearance methods include extremes of age and body size, severe malnutrition or obesity, diseases of skeletal muscle, paraplegia or quadriplegia, vegetarian diet, rapidly changing kidney function, and calculation of the dose of potentially toxic drugs that are excreted by the kidneys. 14 Updated Reference Range 15 Per NCEP ATP III Guidelines: Results lower than 40 mg/dL are suggestive of increased risk for coronary artery disease. Results > or=to 60 mg/dL are considered a negative risk factor. 16 Per NCEP ATP III Guidelines: Normal Population <130 Patients with medical conditions: CHD/DM Optimal: <100 Borderline high: 130-159 High: 160-189 Very high: >189 17 3mo 18 Updated reference range on new analyzer 19 Updated reference range on new analyzer 20 Concerning GFR Guidelines for Americans: Normal function or mild renal disease, if clinically at risk: >/=60 mL/min Moderately decreased: 30-59 Severely decreased: 15-29 Renal failure: <15 21 Concerning GFR Guidelines: Normal function or mild renal disease, if clinically at risk: >/=60 mL/min Moderately decreased: 30-59 Severely decreased: 15-29 Renal failure: <15 Glomerular Filtration Rate (GFR) is estimated based on the MDRD equation, which assumes a steady state for creatinine as recommended by the National Kidney Disease Education Program in conjunction with the National Institutes of Health and the National Kidney Foundation. Clinical conditions in which it may be necessary to measure GFR by using clearance methods include extremes of age and body size, severe malnutrition or obesity, diseases of skeletal muscle, paraplegia or quadriplegia, vegetarian diet, rapidly changing kidney function, and calculation of the dose of potentially toxic drugs that are excreted by the kidneys. 22 Updated reference range on new analyzer 23 Per NCEP ATP III Guidelines: Results lower than 40 mg/dL are suggestive of increased risk for coronary artery disease. Results > or=to 60 mg/dL are considered a negative risk factor. 24 Per NCEP ATP III Guidelines: Normal Population <130 Patients with medical conditions: CHD/DM Optimal: <100 Borderline high: 130-159 High: 160-189 Very high: >189 25 6mos 26 Per NCEP ATP III Guidelines: Results lower than 40 mg/dL are suggestive of increased risk for coronary artery disease. Results > or=to 60 mg/dL are considered a negative risk factor. 27 Per NCEP ATP III Guidelines: Normal Population <130 Patients with medical conditions: CHD/DM Optimal: <100 Borderline high: 130-159 High: 160-189 Very high: >189 28 Concerning GFR Guidelines: Normal function or mild renal disease, if clinically at risk: >/=60 mL/min Moderately decreased: 30-59 Severely decreased: 15-29 Renal failure: <15 Glomerular Filtration Rate (GFR) is estimated based on the MDRD equation, which assumes a steady state for creatinine as recommended by the National Kidney Disease Education Program in conjunction with the National Institutes of Health and the National Kidney Foundation. Clinical conditions in which it may be necessary to measure GFR by using clearance methods include extremes of age and body size, severe malnutrition or obesity, diseases of skeletal muscle, paraplegia or quadriplegia, vegetarian diet, rapidly changing kidney function, and calculation of the dose of potentially toxic drugs that are excreted by the kidneys. 29 Concerning GFR Guidelines for Americans: Normal function or mild renal disease, if clinically at risk: >/=60 mL/min Moderately decreased: 30-59 Severely decreased: 15-29 Renal failure: <15 30 Note: Persistent reduction for 3 months or more in an eGFR <60 mL/min/1.73 m2 defines CKD. Patients with eGFR values >/=60 mL/min/1.73 m2 may also have CKD if evidence of persistent proteinuria is present. The original MDRD equation for estimated GFR is not valid for patients less than 18 years of age. Additional information may be found at www.kdoqi.org. 31 Values below the stated reference ranges of AST and ALT can be seen in normal populations. Clinical correlation is suggested. 32 For -Macedonian patients multiply result by 1.180 33 OPERATION/PROCEDURE Colonoscopy, upper endoscopy DIAGNOSIS: "STOMACH BIOPSY ": ESSENTIALLY NORMAL GASTRIC MUCOSA. NO HELICOBACTER SEEN WITH SPECIAL STAIN. /stanton GROSS "STOMACH BIOPSY". The specimen is received in an appropriately labeled container. This contains one rounded hernandez colored piece of soft tissue measuring up to 0.4 cm.; filtered and submitted in toto within a single cassette. /clf MICROSCOPIC Sections reveal gastric mucosa with well-oriented crypts, with normal maturation of lining cells to the surface. The stroma contains a normal degree of lymphoplasmacytic infiltration. There are no Helicobacter-type bacteria identified with Warthin-Starry staining. The controls are adequate. PRE OPERATIVE DIAGNOSIS Family history of polyps, rectal bleeding REVIEW CODE CODE: I ----- Signed Electronically signed HOWARD BUCHANAN MD 02/04/14 1420 ----- 34 For -Macedonian patients multiply result by 1.180 35 Detection Limit=0.5 36 Detection Limit=4 <4 indicates None Detected Toxicity may occur at levels of 100-500. Measurements of free unbound valproic acid may improve the assess- ment of clinical response. Performed at: - [facility] [address] [id number] Feed Preparation Operator: Gina Encarnacion MD, Phone: [phone] Performed at : - [facility] [address] [id number] Feed Preparation Operator: Gualberto Garibay MD, Phone: [phone] Procedures Date CPT Code Description Status Comment 04/27/2018 18997 Brief Emotional/Behav Completed Assessment W/ Scoring Doc Per Standard Inst 10/27/2017 78428 Measure Blood Oxygen Level Completed Single Determination 12/13/2016 03849 Measure Blood Oxygen Level Completed Single Determination 12/13/2016 32921 X-Ray Chest Two Views Frontal Completed & Lateral 06/09/2015 Mammogram Completed Document: 06/09/15 - Digital Mammo Diag Bilat 05/01/2015 44085 X-Ray Sacrum & Coccyx Two Completed Views 02/01/2014 57151 Colonoscopy Flexible Completed Diagnostic 02/01/2014 Colonoscopy Completed repeat in 10 years - Document: 02/01/14 - Colonoscopy 05/15/2013 56599 Visual Screening Test Completed 08/03/2005 09851 Mammography Unilateral Completed 68682 Mammography Unilateral Completed Encounters Type Date Location Provider CPT E/M Dx Office Visit 07/31/2018 4:00p [facility] [address] R03.0 E78.2 F41.1 F17.210 N18.3 Z23 Office Visit 04/27/2018 4:00p [facility] [place] [address] R03.0 E78.2 F41.1 F17.211 N18.3 M25.562 Z13.89 Office Visit 10/27/2017 10:30a [facility] [place] [address] J01.90 R03.0 E78.2 F41.1 F17.211 Office Visit 07/14/2017 4:15p [facility] [place] [address] F17.211 F41.1 Office Visit 06/16/2017 3:45p [facility] [place] [address] Z72.0 F41.1 Office Visit 05/16/2017 4:00p [facility] [place] [address] F17.210 Office Visit 04/25/2017 3:00p [facility] [place] [address] R03.0 E78.2 F41.1 F17.210 Office Visit 02/08/2017 3:45p [facility] [place] [address] F41.1 Z72.0 R14.2 Office Visit 01/20/2017 3:30p [facility] [place] [address] R03.0 E78.2 F41.1 Z72.0 Office Visit 12/13/2016 11:15a [facility] [place] [address] R05 F17.210 Office Visit 07/22/2016 3:30p [facility] [place] [address] R03.0 E78.2 F33.1 F41.1 R92.2 F17.210 Office Visit 01/09/2016 4:00p [facility] [place] [address] E78.2 F33.1 F17.210 J20.9 R03.0 Office Visit 07/25/2015 3:30p [facility] [place] [address] 796.2 272.2 296.32 305.1 300.02 793.82 Office Visit 05/01/2015 4:00p [facility] [place] [address] 691.8 720.2 Office Visit 02/07/2015 3:30p [facility] [place] [address] 272.2 296.32 305.1 300.02 796.2 Office Visit 11/14/2014 3:00p [facility] [place] [id number] 272.2 305.1 300.02 796.2 Plan of Care Future Appointment(s):11/02/2018 4:00 pm - Bri Baca MD at [facility]08/10/2018 - Alexandra Gavin, PAM54.9 Dorsalgia, unspecifiedNew Medication:Gabapentin 300 mgComments:Unclear etiologyNo other symptoms than pain, does not appear to be musculoskeletalWill try gabapentinCall/to ER with chest pain, palpitations, SOB , headache, GI symptoms, other questions/concernsFollow up:Prn
[2018-09-01 09:10] VITALS: BP 143/68
--- NOTE | 2018-09-01 10:25 | UC ---
Respiratory Complaint HPI - HPI Summary HPI Summary: The patient is a 53-year-old female with a two-week history of cough and congestion. Her cough is sometimes productive of sputum. She was in asthmatic as a child. He has had frequent bouts of bronchitis. She denies any chest pain. She has felt feverish and has had chills. She denies any nausea vomiting or diarrhea. - History of Current Complaint Chief Complaint: UCRespiratory Stated Complaint: CHEST CONGESTION,VAZQUEZ Time Seen by Provider: 09/01/18 10:15 Hx Obtained From: Patient Hx Last Menstrual Period: July Onset/Duration: Sudden Onset, Gradual Onset Timing: Constant Severity Initially: Mild Severity Currently: Moderate Pain Intensity: 5 Pain Scale Used: 0-10 Numeric Character: Cough: Nonproductive Associated Signs And Symptoms: Positive: Fever, Chills - Allergies/Home Medications Allergies/Adverse Reactions: Allergies Allergy/AdvReac Type Severity Reaction Status Date / Time Penicillins Allergy Unknown Verified 09/01/18 09:02 Reaction Details Sulfa (Sulfonamide Allergy Unknown Verified 09/01/18 09:02 Antibiotics) Reaction Details Home Medications: Home Medications Ibuprofen TAB* [Advil TAB*] 800 mg PO Q6H PRN 09/01/18 [History Confirmed ] guaiFENesin [Mucinex For Kids] 100 mg PO Q4H PRN 09/01/18 [History Confirmed ] PMH/Surg Hx/FS Hx/Imm Hx Previously Healthy: Yes - Surgical History Surgical History: Yes Surgery Procedure, Year, and Place: C-Sections, 1982 1994, [facility]; Right Carpal Tunnel, 2002, [facility]; Tubal Ligation, 2004, [place]; Uterine Ablation, 2006 , [place]; - Family History Known Family History: Positive: Hypertension Family History: denies cardiovascular issues in family lineage - Social History Alcohol Use: Occasionally Substance Use Type: None Smoking Status (MU): Current Some Day Smoker Type: Cigarettes Amount Used/How Often: occasional Length of Time of Smoking/Using Tobacco: 35 Years Have You Smoked in the Last Year: Yes When Did the Patient Quit Smoking/Using Tobacco: 07/15/17 Household Exposure Type: Cigarettes - Immunization History Most Recent Influenza Vaccination: 08/26/17 Review of Systems Constitutional: Fever, Chills, Fatigue Skin: Negative Eyes: Negative ENT: Negative Respiratory: Cough Cardiovascular: Negative Gastrointestinal: Negative Genitourinary: Negative Motor: Negative Neurovascular: Negative Musculoskeletal: Negative Neurological: Negative Psychological: Negative All Other Systems Reviewed And Are Negative: Yes Physical Exam Triage Information Reviewed: Yes Appearance: Well-Appearing, No Pain Distress, Well-Nourished Vital Signs: Initial Vital Signs Temp 98.4 F 09/01/18 09:04 Pulse 67 09/01/18 09:04 Resp 16 09/01/18 09:04 BP 143/68 09/01/18 09:04 Pulse Ox 100 09/01/18 09:04 Vital Signs Reviewed: Yes Eyes: Positive: Conjunctiva Clear ENT: Positive: Hearing grossly normal. Negative: Nasal congestion, Nasal drainage, Trismus, Muffled voice, Hoarse voice Neck: Positive: Supple, Nontender, No Lymphadenopathy Respiratory: Positive: Lungs clear, Normal breath sounds, No respiratory distress, No accessory muscle use Cardiovascular: Positive: RRR, No Murmur Musculoskeletal: Positive: ROM Intact, No Edema Neurological Exam: Normal Psychological Exam: Normal Skin Exam: Normal UC Diagnostic Evaluation - Laboratory O2 Sat by Pulse Oximetry: 100 - normal/not hypoxic Respiratory Course/Dx - Differential Dx/Diagnosis Provider Diagnoses: acute bronchitis Discharge - Sign-Out/Discharge Documenting (check all that apply): Patient Departure All imaging exams completed and their final reports reviewed: No Studies - Discharge Plan Condition: Stable Disposition: HOME Prescriptions: Azithromycin TAB* [Zithromax TAB*] 250 mg PO DAILY #6 tab Benzonatate CAP* [Tessalon CAP*] 100 - 200 mg PO TID PRN #28 cap PRN Reason: Cough Patient Education Materials: Acute Bronchitis (ED) Forms: *Work Release Referrals: Bri Baca MD [Primary Care Provider] - 5 Days (if not better) Additional Instructions: recheck for new or worsening symptoms - Billing Disposition and Condition Condition: STABLE Disposition: Home
== END 2018-09-01 10:32 | disposition home or self-care (01) ==
LOC: UCCORT 08:40
DX: J20.9 Acute bronchitis, unspecified (principal); Z88.0 Allergy status to penicillin; Z88.1 Allergy status to other antibiotic agents; Z72.0 Tobacco use
CPT/HCPCS: 99212; G0463

== ENCOUNTER 2018-09-17 19:30 | Emergency (ER) | payer BC ==
[2018-09-17 20:33] VITALS: BP 137/71
[2018-09-17] MEDS ORDERED: Ciprofloxacin 0.3% OPTH.SOL* 2.5 ML BTL RIGHT EYE ONE (21:03)
--- NOTE | 2018-09-17 21:05 | UC ---
Eye Complaint HPI - HPI Summary HPI Summary: 53 year old female presents with redness, itching, and yellow-white discharge from right eye since this morning. Denies fever, chills, visual disturbances, photophobia, FB sensation, or injury. - History of Current Complaint Chief Complaint: UCEye Stated Complaint: PINK EYE Time Seen by Provider: 09/17/18 20:43 Hx Obtained From: Patient Hx Last Menstrual Period: 06/2018 Onset/Duration: Gradual Onset, Lasting Hours Pain Intensity: 0 Location of Injury: Conjunctiva Aggravating Factor(s): Nothing Alleviating Factor(s): Nothing Associated Signs And Symptoms: Positive: Drainage (Purulent). Negative: Photophobia, Vision Impairment Right, Fever, Swelling - Allergies/Home Medications Allergies/Adverse Reactions: Allergies Allergy/AdvReac Type Severity Reaction Status Date / Time Penicillins Allergy Unknown Verified 09/17/18 20:30 Reaction Details Sulfa (Sulfonamide Allergy Unknown Verified 09/17/18 20:30 Antibiotics) Reaction Details PMH/Surg Hx/FS Hx/Imm Hx Previously Healthy: Yes Psychological History: Depression - Surgical History Surgical History: Yes Surgery Procedure, Year, and Place: C-Sections, 1982 1994, [facility]; Right Carpal Tunnel, 2002, [facility]; Tubal Ligation, 2004, [place]; Uterine Ablation, 2006 , [place]; - Family History Known Family History: Positive: Hypertension - Social History Occupation: Employed Full-time Lives: With Family Alcohol Use: Occasionally Substance Use Type: None Smoking Status (MU): Current Some Day Smoker Type: Cigarettes Amount Used/How Often: occasional Length of Time of Smoking/Using Tobacco: 35 Years Have You Smoked in the Last Year: Yes When Did the Patient Quit Smoking/Using Tobacco: 07/15/17 Household Exposure Type: Cigarettes - Immunization History Most Recent Influenza Vaccination: 08/26/17 Review of Systems All Other Systems Reviewed And Are Negative: Yes Constitutional: Positive: Negative Eyes: Positive: Drainage, Eye Redness, Other - See HPI ENT: Positive: Negative Is Patient Immunocompromised?: No Physical Exam Triage Information Reviewed: Yes Appearance: Well-Appearing, No Pain Distress, Well-Nourished Vital Signs: Initial Vital Signs Temp 98.2 F 09/17/18 20:29 Pulse 78 09/17/18 20:29 Resp 14 09/17/18 20:29 BP 137/71 09/17/18 20:29 Pulse Ox 99 09/17/18 20:29 Eyes: Positive: Conjunctiva Inflamed, Discharge - thick white ENT: Positive: Hearing grossly normal, Pharynx normal, TMs normal, Uvula midline. Negative: Nasal congestion, Nasal drainage Neck: Positive: Supple, Nontender, No Lymphadenopathy Respiratory: Positive: Lungs clear, Normal breath sounds, No respiratory distress Cardiovascular: Positive: RRR, No Murmur Neurological: Positive: Alert Skin: Positive: Other - Mild periorbital erythema without edema Eye Complaint Course/Dx - Course Course Of Treatment: 53 year old female with onset of nontraumatic right eye redness and itching with purulent discharge since this morning. Afebrile. Exam consistent with a bacterial conjuntivitis. Will start ciprofloxacin opthlamic drops x 7 days. She is to f/u with PCP in 3 days if symptoms persist. Warning symptoms reviewed. Verbalizes understanding and agrees with POC. - Differential Dx/Diagnosis Differential Diagnosis/HQI/PQRI: Conjunctivitis, Corneal Abrasion, Foreign Body Provider Diagnoses: bacterial conjunctivitis right eye Discharge - Sign-Out/Discharge Documenting (check all that apply): Patient Departure All imaging exams completed and their final reports reviewed: No Studies - Discharge Plan Condition: Stable Disposition: HOME Patient Education Materials: Conjunctivitis (ED) Referrals: Bri Baca MD [Primary Care Provider] - 3 Days (If no improvement in symptoms. ) Additional Instructions: Start ciprofloxacin ophthalmic 1 drop into the affected eye(s) every 2 hours while awake for 2 days then 1 drop every 4 hours while awake for next 5 days. Try to avoid touching or rubbing your eye. Use good hand washing to help prevent spreading infection. Do not reuse any towels or wash cloths and do not share with others. Follow up with your primary care provider in 3 days if no improvement in symptoms. Seek immediate medical attention if you have fever greater than 100.5 F, any changes in vision, worsening pain in your eye, increased swelling, or any worsening of symptoms. - Billing Disposition and Condition Condition: STABLE Disposition: Home
== END 2018-09-17 21:21 | disposition home or self-care (01) ==
LOC: UCCORT 19:30
DX: H10.31 Unspecified acute conjunctivitis, right eye (principal); Z72.0 Tobacco use; Z88.0 Allergy status to penicillin; Z88.2 Allergy status to sulfonamides
CPT/HCPCS: 99212; A9270-GY; G0463

== ENCOUNTER 2018-12-14 14:15 | Emergency (ER) | payer BC ==
[2018-12-14 14:57] VITALS: BP 139/64
--- NOTE | 2018-12-14 15:00 | UC ---
Respiratory Complaint HPI - HPI Summary HPI Summary: 53-year-old female presents with one-week history of nasal congestion, mild sore throat, and a progressively worsening nonproductive cough. Reports intermittent fevers and chills. Associated with some mild shortness of breath and occasional wheezing. Patient is actively trying to stop smoking but continues to smoke up to 5 cigarettes per day. Denies ear pain, dysphagia, chest pain, palpitations, abdominal pain, nausea, vomiting, or diarrhea. - History of Current Complaint Chief Complaint: UCRespiratory Stated Complaint: UPPER RESP CONCERN Time Seen by Provider: 12/14/18 14:44 Hx Obtained From: Patient Hx Last Menstrual Period: spotting now, periods are irregula Pain Intensity: 9 - Allergies/Home Medications Allergies/Adverse Reactions: Allergies Allergy/AdvReac Type Severity Reaction Status Date / Time Penicillins Allergy Unknown Verified 12/14/18 14:21 Reaction Details Sulfa (Sulfonamide Allergy Unknown Verified 12/14/18 14:21 Antibiotics) Reaction Details PMH/Surg Hx/FS Hx/Imm Hx Previously Healthy: Yes - Denies significant PMH - Surgical History Surgical History: Yes Surgery Procedure, Year, and Place: C-Sections, 1982 1994, [facility]; Right Carpal Tunnel, 2002, [facility]; Tubal Ligation, 2004, [place]; Uterine Ablation, 2006 , [place]; - Family History Known Family History: Positive: Hypertension Family History: denies cardiovascular issues in family lineage - Social History Occupation: Employed Full-time Lives: Alone Alcohol Use: Occasionally Substance Use Type: None Smoking Status (MU): Current Some Day Smoker Type: Cigarettes Amount Used/How Often: occasional Length of Time of Smoking/Using Tobacco: 35 Years Have You Smoked in the Last Year: Yes When Did the Patient Quit Smoking/Using Tobacco: 07/15/17 Household Exposure Type: Cigarettes - Immunization History Most Recent Influenza Vaccination: 08/26/17 Most Recent Tetanus Shot: WITHIN 5 YEARS. Review of Systems All Other Systems Reviewed And Are Negative: Yes Constitutional: Positive: Fever, Chills, Fatigue Eyes: Negative: Drainage, Eye Redness ENT: Positive: Nasal Discharge, Sinus Congestion. Negative: Sore Throat, Ear Ache, Sinus Pain/Tenderness Respiratory: Positive: Shortness Of Breath, Cough, Other - Wheezing Cardiovascular: Negative: Palpitations, Chest Pain Gastrointestinal: Negative: Abdominal Pain, Vomiting, Diarrhea, Nausea Genitourinary: Positive: Negative Musculoskeletal: Positive: Negative Neurological: Positive: Negative Is Patient Immunocompromised?: No Physical Exam Triage Information Reviewed: Yes Appearance: Well-Appearing, Well-Nourished Vital Signs: Initial Vital Signs Temp 99 F 12/14/18 14:47 Pulse 88 12/14/18 14:47 Resp 20 12/14/18 14:47 BP 139/64 12/14/18 14:47 Pulse Ox 96 12/14/18 14:47 Vital Signs Reviewed: Yes Eyes: Positive: Conjunctiva Clear. Negative: Discharge ENT: Positive: Pharyngeal erythema - Mild with cobblestoning., Nasal congestion , TMs normal, Uvula midline. Negative: Nasal drainage, Tonsillar swelling, Tonsillar exudate, Sinus tenderness Neck: Positive: Supple, Nontender, No Lymphadenopathy Respiratory: Positive: Chest non-tender, Lungs clear, Normal breath sounds, No respiratory distress. Negative: Crackles, Rhonchi, Wheezing Cardiovascular: Positive: RRR, No Murmur, Pulses Normal, Brisk Capillary Refill Abdomen Description: Positive: Nontender, No Organomegaly, Soft. Negative: Distended, Guarding Bowel Sounds: Positive: Present Musculoskeletal: Positive: Strength Intact, ROM Intact Neurological: Positive: Alert UC Diagnostic Evaluation - Laboratory O2 Sat by Pulse Oximetry: 96 Respiratory Course/Dx - Course Course Of Treatment: 53-year-old female presents with one-week history of nasal congestion, mild sore throat, and a progressively worsening nonproductive cough. Reports intermittent fevers and chills. Associated with some mild shortness of breath and occasional wheezing. Patient is actively trying to stop smoking but continues to smoke up to 5 cigarettes per day. Denies ear pain , dysphagia, chest pain, palpitations, abdominal pain, nausea, vomiting, or diarrhea. Afebrile. Vital signs stable. Exam reveals an adult female with mild nasal congestion, pharyngeal erythema with cobblestoning, no tonsillar swelling or exudate, no anterior cervical lymphadenopathy, clear bilateral breath sounds, a nonproductive cough, and otherwise unremarkable exam. With the reports of fever and worsening cough I will treat her for an acute bronchitis with a course of azithromycin and recommend symptomatic treatment including Tessalon Perles every 8 hours as needed for cough. Patient was offered an albuterol inhaler to use for the reported wheezing however she declines at this time. She is to follow-up with her primary care provider in 7 days if no improvement in symptoms. Discrete or guidance and warning symptoms were reviewed with the patient. Verbalizes understanding and agrees with plan of care. - Differential Dx/Diagnosis Differential Diagnosis/HQI/PQRI: Bronchitis, Influenza, Lower Resp Infection, Sinusitis Provider Diagnosis: Acute bronchitis Discharge - Sign-Out/Discharge Documenting (check all that apply): Patient Departure All imaging exams completed and their final reports reviewed: No Studies - Discharge Plan Condition: Stable Disposition: HOME Prescriptions: Azithromyxin VICTOR MANUEL (NF) [Z-Victor Manuel (Zithromax) 250 mg tabs #6] 2 tab PO .TODAY, THEN 1 DAILY #6 tab Benzonatate CAP* [Tessalon 100 MG CAP*] 100 mg PO TID PRN #30 cap PRN Reason: Cough Patient Education Materials: Acute Bronchitis (ED) Referrals: Bri Baca MD [Primary Care Provider] - 7 Days (If symptoms do not improve.) Additional Instructions: Your history and exam are consistent with acute bronchitis. With the reported fevers and your smoking history I will treat you with an antibiotic. Take azithromycin 2 tabs today then 1 tab a day for the next 4 days. Be aware that the cough with bronchitis may persist for 2-3 weeks even if other symptoms have improved. Get plenty of rest. Drink plenty of fluids. Run a cool mist humidifer in your room at night. Take over the counter acetaminophen (Tylenol) or ibuprofen (Advil, Motrin) according to directions as needed for pain or fever. Take Tessalon Perles 1 cap every 8 hours as needed for cough. Follow up with your primary care provider in 7 days if symptoms do not improve. Seek immediate medical attention in the emergency room if you have fever greater than 100.5 F despite taking acetaminophen or ibuprofen, have chest pain , difficulty breathing, or have any worsening of symptoms. - Billing Disposition and Condition Condition: STABLE Disposition: Home - Attestation Statements Provider Attestation: Patient not seen or examined by me. I was available for consult. I did not diagnose or disposition this patient.
== END 2018-12-14 16:00 | disposition home or self-care (01) ==
LOC: UCCORT 14:15
DX: J20.9 Acute bronchitis, unspecified (principal); R09.81 Nasal congestion; J02.9 Acute pharyngitis, unspecified; F17.210 Nicotine dependence, cigarettes, uncomplicated; Z88.0 Allergy status to penicillin; Z88.2 Allergy status to sulfonamides
CPT/HCPCS: 99212; G0463

== ENCOUNTER 2019-01-25 18:46 | Emergency (ER) | payer BC, OTHER ==
[2019-01-25 19:56] VITALS: BP 123/59
--- NOTE | 2019-01-25 20:17 | UC ---
Lower Extremity/Ankle HPI - HPI Summary HPI Summary: Patient has had several days of increased foot pain, woke up one mornign with pain in the great toe, now there is increased warmth, redness, and pain. hard to bear weight on the toes. - History of Current Complaint Chief Complaint: UCLowerExtremity Stated Complaint: LT FOOT SWELLING UNDER GREAT TOE Time Seen by Provider: 01/25/19 19:48 Hx Obtained From: Patient Hx Last Menstrual Period: MENOPAUSE Onset/Duration: Sudden Onset, Lasting Days Severity Initially: Severe Severity Currently: Severe Pain Intensity: 9 Aggravating Factor(s): Standing, Ambulation Alleviating Factor(s): Rest Able to Bear Weight: Yes - Allergies/Home Medications Allergies/Adverse Reactions: Allergies Allergy/AdvReac Type Severity Reaction Status Date / Time Penicillins Allergy Unknown Verified 01/25/19 19:52 Reaction Details Sulfa (Sulfonamide Allergy Unknown Verified 01/25/19 19:52 Antibiotics) Reaction Details PMH/Surg Hx/FS Hx/Imm Hx Previously Healthy: Yes - Surgical History Surgical History: Yes Surgery Procedure, Year, and Place: C-Sections, 1982 [address], [facility]; Right Carpal Tunnel, 2002, [facility]; Tubal Ligation, 2004, [place]; Uterine Ablation, 2006 , [place]; - Family History Known Family History: Positive: Hypertension Family History: denies cardiovascular issues in family lineage - Social History Alcohol Use: Occasionally Substance Use Type: None Smoking Status (MU): Current Some Day Smoker Type: Cigarettes Amount Used/How Often: occasional Length of Time of Smoking/Using Tobacco: 35 Years Have You Smoked in the Last Year: Yes When Did the Patient Quit Smoking/Using Tobacco: 07/15/17 Household Exposure Type: Cigarettes - Immunization History Most Recent Influenza Vaccination: 08/26/17 Most Recent Tetanus Shot: WITHIN 5 YEARS. Review of Systems All Other Systems Reviewed And Are Negative: Yes Constitutional: Positive: Negative Skin: Positive: Other - redness Eyes: Positive: Negative ENT: Positive: Negative Respiratory: Positive: Negative Cardiovascular: Positive: Negative Gastrointestinal: Positive: Negative Genitourinary: Positive: Negative Motor: Positive: Negative Neurovascular: Positive: Negative Musculoskeletal: Positive: Negative Neurological: Positive: Negative Psychological: Positive: Negative Is Patient Immunocompromised?: No Physical Exam Triage Information Reviewed: Yes Appearance: Well-Appearing, Well-Nourished, Pain Distress Vital Signs: Initial Vital Signs Temp 99.3 F 01/25/19 19:53 Pulse 82 01/25/19 19:53 Resp 16 01/25/19 19:53 BP 123/59 01/25/19 19:53 Pulse Ox 100 01/25/19 19:53 Vital Signs Reviewed: Yes Eye Exam: Normal ENT Exam: Normal Dental Exam: Normal Neck exam: Normal Respiratory Exam: Normal Cardiovascular Exam: Normal Abdominal Exam: Normal Musculoskeletal: Positive: Strength Intact, ROM Limited @ - in great toe and adjacent 2nd toe due to pain, Edema @ - of the left forefoot Neurological Exam: Normal Psychological Exam: Normal Skin Exam: Normal Lower Extremity Course/Dx - Course Course Of Treatment: hx obtained, exam performed ,meds reviewed, xray obtained to rule out injury. Suspicious of gout flare. No hx of gout. she is having consistant symptoms with gout flare. - Differential Dx/Diagnosis Differential Diagnosis/HQI/PQRI: Contusion, Dislocation, Fracture (Closed), Gout , Infection, Sprain, Strain Provider Diagnosis: Great toe pain Discharge - Sign-Out/Discharge Documenting (check all that apply): Patient Departure All imaging exams completed and their final reports reviewed: No - Discharge Plan Condition: Stable Disposition: HOME Prescriptions: Indomethacin CAP* [Indocin CAP*] 50 mg PO TID PRN #21 cap PRN Reason: Pain Patient Education Materials: Gout (ED), Low Purine Diet (ED) Referrals: Bri Baca MD [Primary Care Provider] - Additional Instructions: 1. I am treating you for a gout flare up. 2. I recommend follow up with Bri Baca, in the next few days to obtain any appropriate follow up evaluation 3. Take the prescribed medication for the next 5-7 days 4. I am giving you a list of foods to avoid that may encourage a flare up. 5. The xray is negatvie for any traumatic cause of these symtpoms. - Billing Disposition and Condition Condition: STABLE Disposition: Home
[2019-01-25] MEDS ORDERED: Indomethacin CAP* 25 MG CAP PO ONE (20:37)
--- NOTE | 2019-01-26 16:16 | ED ---
Progress - Progress Note Progress Note: Xray NAD. Course/Dx - Diagnoses Provider Diagnoses: Great toe pain Discharge - Sign-Out/Discharge Documenting (check all that apply): Patient Departure All imaging exams completed and their final reports reviewed: Yes - Discharge Plan Condition: Stable Disposition: HOME Prescriptions: Indomethacin CAP* [Indocin CAP*] 50 mg PO TID PRN #21 cap PRN Reason: Pain Patient Education Materials: Low Purine Diet (ED), Gout (ED) Referrals: Bri Baca MD [Primary Care Provider] - Additional Instructions: 1. I am treating you for a gout flare up. 2. I recommend follow up with Bri Baca, in the next few days to obtain any appropriate follow up evaluation 3. Take the prescribed medication for the next 5-7 days 4. I am giving you a list of foods to avoid that may encourage a flare up. 5. The xray is negatvie for any traumatic cause of these symtpoms. - Billing Disposition and Condition Condition: STABLE Disposition: Home
== END 2019-01-25 21:05 | disposition home or self-care (01) ==
LOC: UCCORT 18:46
DX: M79.675 Pain in left toe(s) (principal); R23.8 Other skin changes; F17.210 Nicotine dependence, cigarettes, uncomplicated; Z88.0 Allergy status to penicillin; Z88.2 Allergy status to sulfonamides
CPT/HCPCS: 99212; A9270-GY; G0463

== ENCOUNTER 2019-10-05 19:53 | Emergency (ER) | payer BC ==
[2019-10-05 20:20] VITALS: BP 108/64
--- NOTE | 2019-10-05 20:31 | UC ---
Bite Injury/Animal HPI - HPI Summary HPI Summary: 54-year-old female comes in with a chief complaint of tick bite the left lower leg. She thinks it was an about 4 days. She noticed it yesterday morning and pulled out. She has by 1 cm area of erythema around the bite she does not have a bull's-eye rash. Also does not have symptoms of Lyme disease no headache no bodyaches fevers. - History of Current Complaint Chief Complaint: UCSkin Stated Complaint: TICK BITE Time Seen by Provider: 10/05/19 20:15 Hx Last Menstrual Period: MENOPAUSE Pain Intensity: 0 - Allergies/Home Medications Allergies/Adverse Reactions: Allergies Allergy/AdvReac Type Severity Reaction Status Date / Time Penicillins Allergy Unknown Verified 10/05/19 20:20 Reaction Details Sulfa (Sulfonamide Allergy Unknown Verified 10/05/19 20:20 Antibiotics) Reaction Details PMH/Surg Hx/FS Hx/Imm Hx Previously Healthy: Yes - Surgical History Surgical History: Yes Surgery Procedure, Year, and Place: C-Sections, 1982 1994, [facility]; Right Carpal Tunnel, 2002, [facility]; Tubal Ligation, 2004, [place]; Uterine Ablation, 2006 , [place]; - Family History Known Family History: Positive: Hypertension Family History: denies cardiovascular issues in family lineage - Social History Alcohol Use: Occasionally Substance Use Type: None Smoking Status (MU): Current Some Day Smoker Type: Cigarettes Amount Used/How Often: 10 per day Length of Time of Smoking/Using Tobacco: 35 Years Have You Smoked in the Last Year: Yes When Did the Patient Quit Smoking/Using Tobacco: 07/15/17 Household Exposure Type: Cigarettes - Immunization History Most Recent Influenza Vaccination: 08/26/17 Most Recent Tetanus Shot: WITHIN 5 YEARS. Review of Systems All Other Systems Reviewed And Are Negative: Yes Constitutional: Positive: Negative Skin: Positive: Other - SEE HPI Eyes: Positive: Negative ENT: Positive: Negative Respiratory: Positive: Negative Cardiovascular: Positive: Negative Gastrointestinal: Positive: Negative Motor: Positive: Negative Neurovascular: Positive: Negative Musculoskeletal: Positive: Negative Neurological: Positive: Negative Psychological: Positive: Negative Is Patient Immunocompromised?: No Physical Exam Triage Information Reviewed: Yes Appearance: Well-Appearing, No Pain Distress, Well-Nourished Vital Signs: Initial Vital Signs Temp 98.5 F 10/05/19 20:15 Pulse 136 10/05/19 20:15 Resp 16 10/05/19 20:15 BP 108/64 10/05/19 20:15 Pulse Ox 94 10/05/19 20:15 Vital Signs Reviewed: Yes Eye Exam: Normal Eyes: Positive: Conjunctiva Clear Neck: Positive: Supple Respiratory: Positive: No respiratory distress Musculoskeletal: Positive: Strength Intact, ROM Intact Neurological: Positive: Alert, Muscle Tone Normal Psychological: Positive: Age Appropriate Behavior Skin: Positive: Other - Left anterior emmanuel 1 cm area of erythema. It is not in a bull's-eye distribution. No foreign body appreciated. No streaking no drainage. Diagnostics - EKG Cardiac Rate: Tachycardia - AT 2044 Cardiac Rhythm: Other Rhythm: Old - PSVT 109BPM Ectopy: None Summary of EKG Findings: PSVT at 109 bpm. CA interval prolonged at 323. Inferior and lateral leads do have flipped T waves. No prior EKGs for comparison Bite Injury Course/Dx - Course Course Of Treatment: I discussed the EKG with the patient. Appears the patient is in PSVT. She has no chest pain or shortness of breath. She has a history of SVT and was on metoprolol at one time with The local track sweeper Dr. Reyes. I discussed the EKG with the [facility] track sweeper Dr. Leija. He recommended contacting Dr. Reyes. With the patient having history of SVT and did not have any other symptoms of shortness of breath, chest pain or feeling like she is going to pass out, we discussed restarting treatment with metoprolol 12.5 mg by mouth twice a day and following up with cardiology. I called Dr. Reyes's office and they are closed until Tuesday, October 08, 2019. Patient feels comfortable going home and taking the metoprolol if needed for racing heart and also we discussed going to the emergency department if the racing heart did not decrease her she had any other symptoms such as chest pain shortness breath lightheadedness. For tick bite she'll follow-up with her primary care doctor as needed. - Differential Dx/Diagnosis Provider Diagnosis: Tick bite of left lower leg, PSVT (paroxysmal supraventricular tachycardia) Discharge ED - Sign-Out/Discharge Documenting (check all that apply): Patient Departure All imaging exams completed and their final reports reviewed: No Studies - Discharge Plan Condition: Stable Disposition: HOME Prescriptions: DOXYcycline CAP(*) [DOXYcycline 100MG CAP(*)] 200 mg PO ONCE #2 cap Metoprolol Tartrate TAB* [Lopressor TAB*] 12.5 mg PO BID #20 tab Patient Education Materials: Supraventricular Tachycardia (ED), Tick Bite (ED) Referrals: Bri Baca MD [Primary Care Provider] - Eric VAUGHAN,Julio Cesar Rogers [Medical Doctor] - Additional Instructions: FOLLOW UP WITH YOUR [facility]. TAKE THE METOPROLOL 12.5 MG TWICE A DAY FOR RACING HEART. GO TO THE EMERGENCY DEPARTMENT IF YOUR HEART CONTINUES TO RACE OR IF YOU HAVE ANY CARDIAC SYMPTOMS SUCH CHEST PAIN SHORTNESS OF BREATH FEEL LIGHTHEADED HE FEEL ILL OR ANY OTHER QUESTIONS. GET REEVALUATED SOONER IF NOT IMPROVING OR WORSE; PERSISTENT TACHYCARDIA, SHORTNESS OF BREATH, CHEST PAIN, YOU FEEL LIGHTHEADED, BULLS EYE RASH, LYME DISEASE SYMPTOMS OR ANY QUESTIONS OR CONCERNS. - Billing Disposition and Condition Condition: STABLE Disposition: Home
[2019-10-05] MEDS ORDERED: DOXYcycline CAP(*) 100 MG PO ONE (21:18)
[2019-10-05] MEDS ORDERED: Metoprolol Tartrate TAB* 25 MG PO ONE (21:26)
== END 2019-10-05 21:47 | disposition home or self-care (01) ==
LOC: UCCORT 19:53
DX: S80.862A Insect bite (nonvenomous), left lower leg, initial encounter (principal); I47.1 Supraventricular tachycardia; I10 Essential (primary) hypertension; Z88.0 Allergy status to penicillin; Z88.2 Allergy status to sulfonamides; F17.210 Nicotine dependence, cigarettes, uncomplicated; W57.XXXA Bitten or stung by nonvenomous insect and other nonvenomous arthropods, initial encounter; Y92.9 Unspecified place or not applicable
CPT/HCPCS: 93005; 99213; A9270-GY; G0463